=== PATIENT | male | born 1980 | race African-American/Black ===

== ENCOUNTER 2017-06-16 23:24 | Emergency (ER) | payer OTHER ==
[~2017-06-16] VITALS: Ht 193 cm; Wt 95.3 kg
--- NOTE | 2017-06-17 00:08 | ED SYNCOPE COMPLAINT ---
History of Present Illness General Chief Complaint: Syncope and Near-Syncope Stated Complaint: BIBA SYNCOPE Source: patient Exam Limitations: poor historian Vital Signs & Intake/Output Vital Signs & Intake/Output Vital Signs Date Time Temp Pulse Resp B/P B/P Pulse O2 O2 Flow FiO2 Mean Ox Delivery Rate 06/17 0454 99.0 77 22 125/78 97 06/17 0250 99.3 82 14 138/71 96 Room Air 06/17 0054 99.4 06/16 2329 99.4 86 20 137/79 96 Room Air ED Intake and Output 06/17 0000 06/16 1200 Intake Total Output Total Balance Patient 210 lb Weight Allergies Coded Allergies: No Known Allergies (06/16/17) Reconcile Medications Hydrochlorothiazide 25 MG TABLET 1 TAB PO DAILY HTN (Reported) Lisinopril 10 MG TABLET 1 TAB PO DAILY HTN (Reported) Triage Note: PER PT/EMS AND FAMILY HAD A SYNCOPAL EPISODE IN BR, PER FAMILY HEARD A THUMP, PT FOUND SITTING ON FLOOR IN BR, VERY DIAPHORETIC, EMS CONTCTED, PT HAS HAD COLD SYMPTOMS LAST FEW DAYS TAKING CORICEDIN UPON ED ARRIVAL NO LOC NO INCONTINENCE AWAKE ALERT AND NO DIAPHORESIS Triage Nurses Notes Reviewed? yes HPI: Patient presents for evaluation of "I passed out". The incident occurred just prior to arrival. Patient states he kind of felt strange prior to the actual event. He states he was urinating when it occurred. He denies any prior fainting episodes. He denies any associated chest pain or palpitations. He states that he has had headache since yesterday described as all over dull throbbing pain that gets sharp when coughing. Patient states that he has had a nonproductive cough along with a tactile fever chills and nasal congestion. He denies phlegm production, sore throat or rashes. His mother is currently ill with similar symptoms. Fortunately patient only had 1 syncopal episode that occurred abruptly while at home. The family heard him fall and when they arrived denied any evidence of seizure activity or incontinence. Initially it seems that the patient may have hurt his knee is but he denies injury currently. Past History Travel History Traveled to [place] past 21 day No Medical History Any Pertinent Medical History? see below for history Neurological: NONE EENT: NONE Cardiovascular: hypertension Respiratory: NONE Gastrointestinal: NONE Hepatic: NONE Renal: NONE Musculoskeletal: NONE Psychiatric: NONE Endocrine: NONE Surgical History Surgical History: non-contributory Psychosocial History What is your primary language Azeri Tobacco Use: Never used Family History Hx Contributory? No Review of Systems Review of Systems Constitutional: Reports: see HPI. EENTM: Reports: see HPI. Respiratory: Reports: no symptoms. Cardiovascular: Reports: syncope. GI: Reports: no symptoms. Genitourinary: Reports: no symptoms. Musculoskeletal: Reports: no symptoms. Skin: Reports: no symptoms. Neurological/Psychological: Reports: no symptoms. All Other Systems: Reviewed and Negative Physical Exam Physical Exam Cranial Nerves: see below Comments: Gen.: Well-nourished, well-developed, no acute respiratory distress. Head: Normocephalic, atraumatic. Eyes: Normal inspection bilaterally, PERRLA, EOMI Ears: Normal inspection bilaterally Nose: Normal inspection Throat/mouth : Moist mucosa Neck: Supple, full range of motion, no goiter, equal carotid pulses, no carotid bruits Heart: Regular rate and rhythm, no murmurs rubs or gallops Lungs: Clear to auscultation bilaterally with normal air entry Chest: Nontender Back: Normal range of motion Abdomen: Soft, nontender, nondistended, normal bowel sounds Extremities: Normal range of motion grossly, equal radial pulses, no cyanosis clubbing or edema Neurologic: Cranial nerves 2 through 12 intact, speech is clear, no dysmetria Skin: warm and dry Psychiatric: Calm, cooperative, no apparent delusions or hallucinations Core Measures ACS in differential dx? No CVA/TIA Diagnosis: No Sepsis Present: No Sepsis Focused Exam Completed? No Progress Differential Diagnosis: orthostatic syncope, vasodepressor syncope, SITUATIONAL SYNCOPE Plan of Care: Orders Procedure Date/time Status RAPID VIRAL INFLUENZA A 06/17 0107 Complete MISTAKE 06/17 0007 Active TROPONIN LEVEL 06/16 2336 Complete MAGNESIUM 06/16 2336 Complete COMPREHENSIVE METABOLIC PANEL 06/16 2336 Complete CBC WITHOUT DIFFERENTIAL 06/16 2336 Complete EKG 06/16 2335 Active Laboratory Tests 06/16/17 2359: Anion Gap 12, Estimated GFR > 60, BUN/Creatinine Ratio 11.1, Glucose 115 H, Calcium 9.1, Magnesium 1.9, Total Bilirubin 0.6, AST 47, ALT 43, Alkaline Phosphatase 66, Troponin I < 0.01, Total Protein 7.3, Albumin 4.2, Globulin 3.1, Albumin/Globulin Ratio 1.4, CBC w Diff MAN DIFF ORDERED, RBC 5.08, MCV 84.8, MCH 27.9, RDW 13.7, MPV 8.6, Gran % 88.0 H, Lymphocytes % 5.9 L, Monocytes % 5.9, Eosinophils % 0.2, Basophils % 0, Absolute Granulocytes 10.7 H, Segmented Neutrophils 85 H, Band Neutrophils 2, Absolute Lymphocytes 0.7 L, Lymphocytes 6 L, Monocytes 7, Absolute Monocytes 0.7 H, Absolute Eosinophils 0, Absolute Basophils 0, Platelet Estimate ADEQUATE, Polychromasia 1+, Hypochromic- Microcytic 1+, Poikilocytosis 1+, Ovalocytes 1+, Stomatocytes FEW, PUBS MCHC 32.9 L, Fld Total RBCs Counted 100 Microbiology 06/17 109 NASOPHARYN: Influenza Virus A & B Rapid Smear - COMP Diagnostic Imaging: Discussed w/RAD: CT Scan. Radiology Impression: PATIENT: YASIR CHAUDHRY PRESENT AGE: 37 PATIENT ACCOUNT NO: [id number] : 81 LOCATION: [facility] ORDERING PHYSICIAN: David Guzman MD SERVICE DATE: 06/17/17 EXAM TYPE: CAT - CT CERV SPINE WO IV CONTRAST; CT HEAD WO IV CONTRAST EXAMINATION: CT HEAD WITHOUT CONTRAST CT CERVICAL SPINE WITHOUT CONTRAST CLINICAL INFORMATION: Syncope with headache. COMPARISON: None. TECHNIQUE: Contiguous axial imaging was performed from the skull base to vertex without intravenous administration of contrast. Multidetector helical imaging was performed through the cervical spine. Coronal and sagittal reformats were completed at the technologist workstation. DLP: 1098 mGy-cm. FINDINGS: HEAD: There is no evidence of acute intracranial hemorrhage or territorial infarction. No abnormal mass effect or midline shift is seen. Cortical parmar to white matter differentiation is well preserved without evidence of territorial infarct. No extra-axial fluid collections are identified. No hydrocephalus. There is apparent left globe proptosis. Orbits are otherwise unremarkable in appearance. The osseous structures and soft tissues are normal. The mastoid air cells and visualized portions of the paranasal sinuses are well aerated. CERVICAL SPINE: No acute fracture or dislocation is identified in the cervical spine. Vertebral body heights are maintained. The atlantoaxial articulation is normally maintained. No prevertebral soft tissue swelling. The lung apices are clear. IMPRESSION: 1. No acute intracranial pathology. 2. No evidence of acute cervical spine traumatic injury. 3. Apparent left globe proptosis with otherwise unremarkable appearance of the orbits. Clinical correlation is recommended. DICTATED BY: Phil Lopez MD DATE/TIME DICTATED:06/17/1747 FLOW TRADER:RILEY DATE/TIME TRANSCRIBED:06/17/1747 CONFIDENTIAL, DO NOT COPY WITHOUT APPROPRIATE AUTHORIZATION. <Electronically signed in Other Vendor System> SIGNED BY: Phil Lopez MD 06/17/17 0100 Initial ED EKG: NSR, rate (86), no ST T wave changes Comments: 06/17/2017 2:54:53 AM I have updated Yasir on test results. 06/17/2017 4:49:39 AM Yasir appears more comfortable. Parents agree. He is more alert and is answering questions briskly. He has no complaint at this time. He is however requesting cough medication. Departure Departure Disposition: HOME OR SELF CARE Condition: Stable Clinical Impression Primary Impression: Syncope Qualifiers: Syncope type: unspecified Qualified Code: R55 - Syncope and collapse Secondary Impressions: Viral syndrome Additional Instructions: Maintain a good fluid intake. Cough medication as prescribed. Tylenol or ibuprofen as needed for headache. Follow-up with your primary care physician in 48-72 hours for reevaluation if not improved. Return if any concerns or sudden worsening. Thank you for choosing the [facility] for your care. It was a pleasure to serve you today. David Guzman M.D. [facility] Departure Forms: Customer Survey General Discharge Information Prescriptions: Current Visit Scripts Guaifenesin/Dextromethorphan (Robitussin Cough-Chest Dm Liq) 5-10 ML PO Q6P PRN COUGH/CONGESTION #250 ML
[2017-06-17 00:15] LABS: ABSOLUTE BASOPHIL COUNT 0 /CUMM (0.0-0.2); ABSOLUTE EOSINOPHIL COUNT 0 /CUMM (0.0-0.7); ABSOLUTE GRANULOCYTE CT 10.7 /CUMM (1.4-6.5); ABSOLUTE LYMPH COUNT 0.7 /CUMM (1.2-3.4); ABSOLUTE MONOCYTE COUNT 0.7 /CUMM (0.10-0.60); BASOPHIL % 0 % (0.0-2.0); EOSINOPHIL % 0.2 % (0-5); HEMATOCRIT 43.1 % (42-52); MEAN CORPUSCULAR HGB 27.9 PG (27.0-31.0); MEAN CORPUSCULAR HGB CONC 32.9 G/DL (33.0-37.0); MEAN CORPUSCULAR VOLUME 84.8 FL (80.0-94.0); MEAN PLATELET VOLUME 8.6 FL (7.4-10.4); PLATELET COUNT 190 /CUMM (130-400); RBC DISTRIBUTION WIDTH 13.7 % (11.5-14.5); RED BLOOD CELL CT 5.08 /CUMM (4.70-6.10); WHITE BLOOD CELL COUNT 12.2 /CUMM (4.8-10.8)
[2017-06-17] MEDS ORDERED: HYDROCHLOROTHIA25 M1 PO (00:16)
[2017-06-17] MEDS ORDERED: LISINOPRIL10 M1 PO (00:17)
--- NOTE | 2017-06-17 01:00 | CT SCAN REPORT ---
EXAMINATION: CT HEAD WITHOUT CONTRAST CT CERVICAL SPINE WITHOUT CONTRAST CLINICAL INFORMATION: Syncope with headache. COMPARISON: None. TECHNIQUE: Contiguous axial imaging was performed from the skull base to vertex without intravenous administration of contrast. Multidetector helical imaging was performed through the cervical spine. Coronal and sagittal reformats were completed at the technologist workstation. DLP: 1098 mGy-cm. FINDINGS: HEAD: There is no evidence of acute intracranial hemorrhage or territorial infarction. No abnormal mass effect or midline shift is seen. Cortical parmar to white matter differentiation is well preserved without evidence of territorial infarct. No extra-axial fluid collections are identified. No hydrocephalus. There is apparent left globe proptosis. Orbits are otherwise unremarkable in appearance. The osseous structures and soft tissues are normal. The mastoid air cells and visualized portions of the paranasal sinuses are well aerated. CERVICAL SPINE: No acute fracture or dislocation is identified in the cervical spine. Vertebral body heights are maintained. The atlantoaxial articulation is normally maintained. No prevertebral soft tissue swelling. The lung apices are clear. IMPRESSION: 1. No acute intracranial pathology. 2. No evidence of acute cervical spine traumatic injury. 3. Apparent left globe proptosis with otherwise unremarkable appearance of the orbits. Clinical correlation is recommended.
[2017-06-17 04:54] VITALS: BP 125/78
[2017-06-17] MEDS ORDERED: ROBITUSSIN COU237 M1 PO (04:58)
== END 2017-06-17 05:05 ==
LOC: ERH 23:24
PROVIDERS: Emergency Medicine
DX: R55 Syncope and collapse (principal); B34.9 Viral infection, unspecified; R51 Headache
CPT/HCPCS: 87804; 87804-59; 93005; 93010; 96361; 96374; 96375; J0131; J1885

== ENCOUNTER 2017-09-18 23:45 | Emergency (ER) | payer OTHER ==
[~2017-09-18] VITALS: Ht 193 cm; Wt 93.0 kg
[~2017-09-18 23:45] MED LIST: HYDROCHLOROTHIA25 M1 PO; LISINOPRIL10 M1 PO; ROBITUSSIN COU237 M1 PO
--- NOTE | 2017-09-19 00:01 | ED GENERAL ADULT ---
History of Present Illness General Chief Complaint: General Adult Stated Complaint: "TYPHIM INJECTION" Source: patient, old records Exam Limitations: no limitations Vital Signs & Intake/Output Vital Signs & Intake/Output Vital Signs Date Time Temp Pulse Resp B/P B/P Pulse O2 O2 Flow FiO2 Mean Ox Delivery Rate 09/19 0002 97 Room Air 09/19 0002 97.1 88 18 132/81 97 Room Air ED Intake and Output 09/19 0000 04/ 1200 Intake Total Output Total Balance Patient 205 lb Weight Weight Reported by Patient Measurement Method Allergies Coded Allergies: No Known Allergies (06/16/17) Reconcile Medications Hydrochlorothiazide 25 MG TABLET 1 TAB PO DAILY HTN (Reported) Lisinopril 10 MG TABLET 1 TAB PO DAILY HTN (Reported) Triage Nurses Notes Reviewed? yes Onset: Just prior to arrival Duration: minute(s):, constant, continues in ED Timing: recent history No Modifying Factors: none HPI: Patient presents for typhous vaccination for mission to [facility]. Denies fever chills nausea vomiting diarrhea abdominal pain chest pain shortness breath headache dysuria rash bleeding. Past History Travel History Traveled to [place] past 21 day No Medical History Any Pertinent Medical History? see below for history Neurological: NONE EENT: NONE Cardiovascular: hypertension Respiratory: NONE Gastrointestinal: NONE Hepatic: NONE Renal: NONE Musculoskeletal: NONE Psychiatric: NONE Endocrine: NONE Blood Disorders: NONE Cancer(s): NONE WELFARE SPECIALIST/Reproductive: NONE Surgical History Surgical History: non-contributory Psychosocial History What is your primary language Omani Tobacco Use: Refused to answer Family History Hx Contributory? No Review of Systems Review of Systems Constitutional: Reports: no symptoms. EENTM: Reports: no symptoms. Respiratory: Reports: no symptoms. Cardiovascular: Reports: no symptoms. GI: Reports: no symptoms. Genitourinary: Reports: no symptoms. Musculoskeletal: Reports: no symptoms. Skin: Reports: no symptoms. Neurological/Psychological: Reports: no symptoms. Hematologic/Endocrine: Reports: no symptoms. Immunologic/Allergic: Reports: no symptoms. All Other Systems: Reviewed and Negative Physical Exam Physical Exam General Appearance: well developed/nourished, alert, awake, comfortable, thin Head: atraumatic, normal appearance Eyes: Bilateral: normal appearance, PERRL, EOMI. Ears, Nose, Throat: normal pharynx, normal ENT inspection, hearing grossly normal Neck: normal inspection, supple, full range of motion, no midline tenderness Respiratory: normal breath sounds, chest non-tender, no respiratory distress, quiet respiration, lungs clear Cardiovascular: regular rate/rhythm, normal peripheral pulses, norml femoral pulses equa Peripheral Pulses: 4+ carotid (R), 4+ carotid (L) Gastrointestinal: normal bowel sounds, soft, non-tender, no organomegaly Back: normal inspection, normal range of motion Extremities: normal inspection, normal capillary refill, normal range of motion, no edema Neurologic/Psych: no motor/sensory deficits, awake, alert, oriented x 3, normal gait, normal mood/affect, cotton chopper II-XII nml as tested Skin: intact, normal color, warm/dry Lymphatic: no anterior cervical zain Core Measures ACS in differential dx? No CVA/TIA Diagnosis: No Sepsis Present: No Sepsis Focused Exam Completed? No Progress Differential Diagnoses I considered the following diagnoses in my evaluation of the patient: Typhus immunization Plan of Care: typhus immunization Initial ED EKG: none Departure Departure Time of Disposition: 0001 Disposition: HOME OR SELF CARE Condition: Stable Clinical Impression Primary Impression: Need for vaccination against typhus Referrals: Unknown Departure Forms: Customer Survey General Discharge Information Critical Care Note Critical Care Note Critical Care Time: non-applicable
[2017-09-19 00:02] VITALS: BP 132/81
== END 2017-09-19 00:09 ==
LOC: ERH 23:45
DX: Z23 Encounter for immunization (principal)
CPT/HCPCS: 99281